=== PATIENT | female | born 1980 | race African-American/Black ===

== ENCOUNTER 2017-05-17 13:09 | Emergency (ER) | payer OTHER ==
[~2017-05-17] VITALS: Ht 160 cm; Wt 77.1 kg
[~2017-05-17 13:09] MED LIST: ASPERDRINK81 MG PO; ASPIRIN81 M2 PO; BACTRIM,SEPT1 TABLET PO; COLACE100 MG PO; COUMADIN; COUMADIN1 MG PO; COUMADIN5 MG PO; CRESTOR20 MG PO; DOCUSATE SODIU100 MG PO; DOXYCYCLINE HY100 MG PO; ENDOCET 5-3251 EACH PO; FEOSOL325 MG PO; FLEXERIL5 MG PO; HEPARIN SO5000 UNITS SC; KEFLEX500 MG PO; LOVENOX; LOVENOX40 MG/0.4 SC; LOVENOX80 MG/0.8 SC; METOPROLOL; Motrin PO; NAPROSYN500 MG PO; NAPROXEN500 MG PO; NOHOMEMEDS; NORCO 5/3251 TABLET PO; NORCO 7.5/321 TABLET PO; PLAVIX; PLAVIX75 MG PO; PRAVACHOL40 MG PO; PRENATAL TABLE1 EACH PO; VICODIN 5-3001 EACH PO
[2017-05-17 13:50] LABS: HEMATOCRIT 33.1 % (36.0-46.0); MCH 23.2 PG (29.0-34.0); MCHC 30.5 G/DL (30.0-36.0); MCV 76.1 FL (83-99); MEAN PLAT.VOLUME 8.9 uM^3 (9.5-12.4); PLATELET COUNT 477 K/uL (156-360); RBC DIS.WIDTH-CV 16.8 % (11.8-14.6); RBC DIS.WIDTH-SD 46.3 % (39-53); RED BLOOD COUNT 4.35 M/uL (3.80-5.20); WHITE BLOOD COUNT 8.7 K/uL (4.1-10.2)
[2017-05-17 13:56] LABS: INTER. NORMALIZED RATIO 2.5
[2017-05-17 13:59] LABS: PTT 33.8 SEC (25-37)
[2017-05-17 14:11] LABS: QUANTITATIVE HCG 216.3 MIU/ML
[2017-05-17 14:49] LABS: CHLORIDE 107 mEq/L (99-109); POTASSIUM 3.7 mEq/L (3.7-5.4); SODIUM 137 mEq/L (136-147)
[2017-05-17 14:50] LABS: ADD MIUA? YES; BILIRUBIN NEGATIVE; BLOOD LARGE; COLOR YELLOW ((YELLOW)); GLUCOSE (STRIP) NEGATIVE; KETONES NEGATIVE; LEUKOCYTES LARGE; NITRITE NEGATIVE; PROTEIN (STRIP) NEGATIVE; SPECIFIC GRAVITY 1.024 (1.000-1.030); UROBILINOGEN 0.2 MG/DL (0.2-1.0)
[2017-05-17 14:51] LABS: GLUCOSE 91 mg/dL (70-99)
[2017-05-17 14:52] LABS: ANION GAP 12 MEQ/L (2-14)
[2017-05-17 14:53] LABS: TOTAL BILIRUBIN 0.2 mg/dL (0.0-1.0)
[2017-05-17 14:55] LABS: ALKALINE PHOSPHATASE 53 IU/L (3-129); GFR ESTIMATE (CALCULATED) > 59 mL/min/
[2017-05-17 14:56] LABS: UREA NITROGEN (BUN) 9 mg/dL (9-23)
[2017-05-17 14:57] LABS: BACTERIA RARE /HPF; EPITHELIAL CELLS 2+ /HPF; MUCUS TRACE /LPF; RED BLOOD CELLS 15-20 /HPF (0-5); RENAL EPITHELIAL CELLS RARE /HPF; UCUL ADDED? YES; WHITE BLOOD CELLS 20-30 /HPF (0-5)
[2017-05-17 14:58] LABS: LIPASE 11 U/L (1.0-51.0)
[2017-05-17] MEDS ORDERED: KEFLEX500 MG PO (17:26)
[2017-05-17 17:38] VITALS: BP 132/67
== END 2017-05-17 17:39 | disposition home or self-care (01) ==
LOC: EME 13:09
DX: O20.0 Threatened abortion (principal); O99.011 Anemia complicating pregnancy, first trimester; O99.111 Other diseases of the blood and blood-forming organs and certain disorders involving the immune mechanism complicating pregnancy, first trimester; D75.1 Secondary polycythemia; D68.59 Other primary thrombophilia; Z79.01 Long term (current) use of anticoagulants; Z79.02 Long term (current) use of antithrombotics/antiplatelets; Z79.82 Long term (current) use of aspirin; Z3A.01 Less than 8 weeks gestation of pregnancy; Z87.891 Personal history of nicotine dependence
CPT/HCPCS: 76801; 80053; 81003; 83690; 84702; 85027; 85610; 85730; 87086; 99281; 99284

== ENCOUNTER 2017-08-18 17:09 | Emergency (ER) | payer OTHER ==
[~2017-08-18] VITALS: Ht 160 cm; Wt 75.3 kg
[2017-08-18 18:45] LABS: INTER. NORMALIZED RATIO 1.1; PROTHROMBIN TIME 12.7 SEC (10.2-12.9)
[2017-08-18 18:47] LABS: PTT 26.5 SEC (25-37)
[2017-08-18 18:48] LABS: HEMATOCRIT 32.8 % (36.0-46.0); MCH 22.2 PG (29.0-34.0); MCHC 29.9 G/DL (30.0-36.0); MCV 74.2 FL (83-99); MEAN PLAT.VOLUME 9.5 uM^3 (9.5-12.4); PLATELET COUNT 452 K/uL (156-360); RBC DIS.WIDTH-CV 18.9 % (11.8-14.6); RBC DIS.WIDTH-SD 49.4 % (39-53); RED BLOOD COUNT 4.42 M/uL (3.80-5.20); WHITE BLOOD COUNT 9.2 K/uL (4.1-10.2)
[2017-08-18 19:00] LABS: ANION GAP 12 MEQ/L (2-14); CHLORIDE 107 MEQ/L (99-109); POTASSIUM 3.6 MEQ/L (3.7-5.4); SAMPLE HEMOLYSIS CHECK 0; SAMPLE ICTERIC CHECK 0; SAMPLE LIPEMIA CHECK 0; SODIUM 140 MEQ/L (136-147)
[2017-08-18 19:05] LABS: GFR ESTIMATE (CALCULATED) > 59 mL/min/; GLUCOSE 92 mg/dL (70-99); UREA NITROGEN (BUN) 6 mg/dL (9-23)
[2017-08-18 19:10] LABS: QUANTITATIVE HCG < 4.0 MIU/ML
[2017-08-18 20:05] LABS: MAGNESIUM 1.9 mg/dl (1.3-2.7)
[2017-08-19 04:53] VITALS: BP 120/79
== END 2017-08-19 05:04 | disposition designated cancer center or children's hospital, planned readmission (85) ==
LOC: EME 17:09
PROVIDERS: Nurse Practitioner Family
DX: I63.9 Cerebral infarction, unspecified (principal); I77.71 Dissection of carotid artery; I65.21 Occlusion and stenosis of right carotid artery; Z79.01 Long term (current) use of anticoagulants; Z79.02 Long term (current) use of antithrombotics/antiplatelets; Z79.82 Long term (current) use of aspirin; Z86.73 Personal history of transient ischemic attack (TIA), and cerebral infarction without residual deficits; Z72.0 Tobacco use
CPT/HCPCS: 70450; 70496; 70498; 70551; 80048; 83735; 84702; 85027; 85610; 85730; 93005; J1200; J2060; J2270; J2405; J2765; J2920; J3475; J7030; J7050

== ENCOUNTER 2017-10-26 19:10 | Emergency (ER) | payer OTHER ==
[~2017-10-26] VITALS: Ht 160 cm; Wt 78.5 kg
[2017-10-26] MEDS ORDERED: MOTRIN600 MG PO (23:05)
[2017-10-26] MEDS ORDERED: BACTRIM,SEPT1 TABLET PO (23:05)
[2017-10-26] MEDS ORDERED: NORCO 5/3251 TABLET PO (23:05)
[2017-10-26 23:23] VITALS: BP 133/73
== END 2017-10-26 23:24 | disposition home or self-care (01) ==
LOC: EME 19:10
PROC: 0H9CXZZ Drainage of Left Upper Arm Skin, External Approach (ICD-10-PCS; principal; 2017-10-26)
DX: L02.412 Cutaneous abscess of left axilla (principal); I25.2 Old myocardial infarction; F32.9 Major depressive disorder, single episode, unspecified; Z86.73 Personal history of transient ischemic attack (TIA), and cerebral infarction without residual deficits; Z86.14 Personal history of Methicillin resistant Staphylococcus aureus infection; Z79.02 Long term (current) use of antithrombotics/antiplatelets
CPT/HCPCS: 99281; 99284